=== PATIENT | male | born 1940 | race Caucasian/White ===

== ENCOUNTER 2025-06-23 15:17 | Outpatient (CLI) | payer MEDICARE | END 2025-06-23 15:18 | disposition home or self-care (01) | LOC: CSHULT 15:17 | PROVIDERS: ATTEND Internal Medicine Nephrology | DX: N18.30 Chronic kidney disease, stage 3 unspecified (principal); N13.30 Unspecified hydronephrosis | CPT/HCPCS: 76770 ==